=== PATIENT | male | born 1955 | race Caucasian/White ===

== ENCOUNTER 2017-08-25 16:16 | Inpatient (IN) | payer SELFPAY ==
[2017-08-25] VITALS (8 sets, daily range): BP systolic 106–135; BP diastolic 68–92; PULSE 98–110; RESP 16–18; TEMP 98.1–98.7; O2SAT 92–98
[~2017-08-25] VITALS: Ht 177.8 cm; Wt 77.0 kg
[~2017-08-25 16:16] MED LIST: IOHEXOL 350 MG/ML 100 ML BTL (for Cath Lab) OTHER ONE
[2017-08-25] MEDS ORDERED: LISI-515 PO (16:37)
[2017-08-25] MEDS ORDERED: NITROGLYCERIN 0.4 MG SL 25 TABS/BTL SL STA (16:40)
[2017-08-25] MEDS ORDERED: HEPARIN SODIUM - IV 10,000 UNITS/10 ML VIAL IV PUSH STA (16:40)
[2017-08-25] MEDS ORDERED: SODIUM CHLOR 0.9% 1000 ML INJ 1,000 ML IV ONE (16:40)
[2017-08-25] MEDS ORDERED: ASPIRIN 81 MG CHEW TAB PO STA (16:40)
[2017-08-25] MEDS ORDERED: HEPARIN SODIUM - IV 10,000 UNITS/10 ML VIAL ONE (16:43)
[2017-08-25] MEDS ORDERED: HEPARIN-NS/PF FLUSH BAG 2,000 ML IV FLUSH ONE (16:43)
[2017-08-25] MEDS ORDERED: NITROGLYCERIN-D5W 50 MG/250 ML 250 ML IV PRN (16:45)
[2017-08-25] MEDS ORDERED: SODIUM CHLORIDE 0.9% FLUSH 10 ML FLUSH IVF PRN (16:45)
--- NOTE | 2017-08-25 16:47 | PD ---
HPI Chief Complaint: STEMI Alert Time Seen by Provider: 16:25 Travel History International Travel<30 days: No Contact w/Intl Traveler<30days: No Traveled to known affect area: No History of Present Illness HPI The patient is a 62-year-old male who presents to the emergency department abnormal EKG. Patient states she was in the city 1 week ago on Wednesday when he developed what he thought was indigestion. The patient took medications and the symptoms got better. He then returned home and this past Wednesday developed shortness of breath while at rest. Patient thought it was secondary to exposure from mold on a construction site. He has been asymptomatic over the last several days, however, when saw his physician earlier today, Dr. Burris, who performed an EKG and sent him immediately to the emergency department via EMS for possible OH. Upon arrival the patient has no chest pain, shortness breath, nausea, vomiting, abdominal pain. He does note a history of previous OH 2017 with cardiac catheterization by Dr. Slater, however, no longer follows with Dr. Slater. The patient has not seen Dr. Burris in the last 9 years until earlier today. The patient does have a history of hypertension for which he takes lisinopril. He also has a history of hyperlipidemia takes no current medications. He does have a history of tobacco use, denies any history of diabetes. He does have a family history of heart disease on his mother's side. PFSH Past Medical History Cardiac Catheterization: Yes (STENT 2006) Diminished Hearing: No Hypertension: Yes Myocardial Infarction: Yes ("I GUESS I HAD A OH IN 2006") Triglycerides - High: Yes ?: Not Social History Alcohol Use: No Tobacco Use: No Substance Use: No Allergies-Medications (Allergen,Severity, Reaction): Coded Allergies: No Known Allergies (Unverified , 08/25/17) Reported Meds & Prescriptions Reported Meds & Active Scripts Active Reported Lisinopril 20 Mg Tab 20 Mg PO DAILY Review of Systems Except as stated in HPI: all other systems reviewed are Neg General / Constitutional: No: Fever Cardiovascular: Positive: Chest Pain or Discomfort (A week ago Wednesday which has resolved) Respiratory: Positive: Shortness of Breath (Last Wednesday which has been) Gastrointestinal: No: Nausea, Vomiting, Abdominal Pain Neurologic: No: Weakness, Dizziness Physical Exam Narrative GENERAL: Awake, alert, pleasant 62-year-old male who appears his stated age and is in no acute respiratory distress. SKIN: Focused skin assessment warm/dry. HEAD: Atraumatic. Normocephalic. EYES: Pupils equal and round. No injection or drainage. ENT: No nasal bleeding or discharge. Mucous membranes pink and moist. NECK: Trachea midline. No JVD. CARDIOVASCULAR: Regular rate and rhythm. No murmur appreciated. RESPIRATORY: No accessory muscle use. Clear to auscultation. Breath sounds equal bilaterally. GASTROINTESTINAL: Abdomen soft, non-tender, nondistended. No rebound tenderness. MUSCULOSKELETAL: No obvious deformities. No clubbing. No cyanosis. No edema. NEUROLOGICAL: Awake and alert. No obvious cranial nerve deficits. Motor grossly within normal limits. Normal speech. Nonfocal. PSYCHIATRIC: Appropriate mood and affect; insight and judgment normal. Data Data Last Documented VS Vital Signs Date Time Temp Pulse Resp B/P (MAP) Pulse Ox O2 Delivery O2 Flow Rate FiO2 08/25/17 19:00 109 08/25/17 18:43 98.1 18 134/85 (101) 92 08/25/17 16:48 Nasal Cannula 2.00 Orders Orders Electrocardiogram (08/25/17 ) Troponin I (08/25/17 16:40) Ckmb (Isoenzyme) Profile (08/25/17 16:40) Complete Blood Count With Diff (08/25/17 16:40) I-Stat Profile (08/25/17 16:40) I-Stat Creatinine (08/25/17 16:40) Calcium (08/25/17 16:40) Magnesium (Mg) (08/25/17 16:40) Prothrombin Time / Inr (Pt) (08/25/17 16:40) Act Partial Throm Time (Ptt) (08/25/17 16:40) B-Type Natriuretic Peptide (08/25/17 16:40) Chest, Single Ap (08/25/17 16:40) Oxygen Administration (08/25/17 16:40) Iv Access Insert/Monitor (08/25/17 16:40) Oximetry (08/25/17 16:40) Sodium Chlor 0.9% 1000 Ml Inj (Ns 1000 M (08/25/17 16:40) Sodium Chloride 0.9% Flush (Ns Flush) (08/25/17 16:45) Aspirin Chew (Aspirin Chew) (08/25/17 16:40) Nitroglycerin Sl (Nitrostat Sl) (08/25/17 16:40) Nitroglycerin-D5w 50 Mg/250 Ml (Nitrogly (08/25/17 16:45) Heparin Inj (Heparin Inj) (08/25/17 16:40) Heparin-Ns/Pf Flush Bag (Heparin-Ns/Pf F (08/25/17 16:43) Heparin Inj (Heparin Inj) (08/25/17 16:43) Admit Order (Ed Use Only) (08/25/17 16:47) Cardiac Catheterization (08/25/17 ) CKMB (08/25/17 16:40) CKMB% (08/25/17 16:40) Fentanyl Inj (Fentanyl Inj) (08/25/17 17:47) Clopidogrel (Plavix) (08/25/17 18:02) Furosemide Inj (Lasix Inj) (08/25/17 18:03) Tirofiban Infusion Inj (Aggrastat Infusi (08/25/17 18:03) Labs Laboratory Tests Test 08/25/17 16:40 White Blood Count 9.7 TH/MM3 Red Blood Count 4.59 MIL/MM3 Hemoglobin 14.3 GM/DL Bedside Hemoglobin 14.3 G/DL Hematocrit 42.1 % Bedside Hematocrit 42.0 % Mean Corpuscular Volume 91.5 FL Mean Corpuscular Hemoglobin 31.2 PG Mean Corpuscular Hemoglobin Concent 34.1 % Red Cell Distribution Width 12.8 % Platelet Count 211 TH/MM3 Mean Platelet Volume 11.3 FL Neutrophils (%) (Auto) 63.9 % Lymphocytes (%) (Auto) 25.0 % Monocytes (%) (Auto) 8.6 % Eosinophils (%) (Auto) 1.8 % Basophils (%) (Auto) 0.7 % Neutrophils # (Auto) 6.2 TH/MM3 Lymphocytes # (Auto) 2.4 TH/MM3 Monocytes # (Auto) 0.8 TH/MM3 Eosinophils # (Auto) 0.2 TH/MM3 Basophils # (Auto) 0.1 TH/MM3 CBC Comment AUTO DIFF Differential Comment AUTO DIFF CONFIRMED Platelet Estimate NORMAL Platelet Morphology Comment CLUMPED Prothrombin Time 10.6 SEC Prothromb Time International Ratio 1.0 RATIO Activated Partial Thromboplast Time 22.7 SEC Bedside Sodium 137 MMOL/L Bedside Potassium 6.0 MMOL/L Bedside Chloride 105 MMOL/L Bedside Blood Urea Nitrogen 19 MG/DL Bedside Creatinine 1.2 MG/DL Bedside Glucose 82 MG/DL Calcium Level 8.7 MG/DL Magnesium Level 2.4 MG/DL Total Creatine Kinase 275 U/L Creatine Kinase MB 2.0 NG/ML Troponin I 1.05 NG/ML B-Type Natriuretic Peptide 325 PG/ML MDM Medical Decision Making Medical Screen Exam Complete: Yes Emergency Medical Condition: Yes Medical Record Reviewed: Yes Interpretation(s) EKG reveals normal sinus rhythm with a rate of 95. ST elevation noted in V2, V3 , V4, and V5. Q waves noted in lead V2, V3, V4, and V5. Inverted T waves noted in lead I and aVL. Last Impressions Chest X-Ray 08/25/17 1640 Signed Impressions: Service Date/Time: Friday, August 25, 2017 16:42 - CONCLUSION: No acute disease. Jose Enrique Curry MD Laboratory Tests Test 08/25/17 16:40 White Blood Count 9.7 TH/MM3 Red Blood Count 4.59 MIL/MM3 Hemoglobin 14.3 GM/DL Bedside Hemoglobin 14.3 G/DL Hematocrit 42.1 % Bedside Hematocrit 42.0 % Mean Corpuscular Volume 91.5 FL Mean Corpuscular Hemoglobin 31.2 PG Mean Corpuscular Hemoglobin Concent 34.1 % Red Cell Distribution Width 12.8 % Platelet Count 211 TH/MM3 Mean Platelet Volume 11.3 FL Neutrophils (%) (Auto) 63.9 % Lymphocytes (%) (Auto) 25.0 % Monocytes (%) (Auto) 8.6 % Eosinophils (%) (Auto) 1.8 % Basophils (%) (Auto) 0.7 % Neutrophils # (Auto) 6.2 TH/MM3 Lymphocytes # (Auto) 2.4 TH/MM3 Monocytes # (Auto) 0.8 TH/MM3 Eosinophils # (Auto) 0.2 TH/MM3 Basophils # (Auto) 0.1 TH/MM3 CBC Comment AUTO DIFF Differential Comment AUTO DIFF CONFIRMED Platelet Estimate NORMAL Platelet Morphology Comment CLUMPED Prothrombin Time 10.6 SEC Prothromb Time International Ratio 1.0 RATIO Activated Partial Thromboplast Time 22.7 SEC Bedside Sodium 137 MMOL/L Bedside Potassium 6.0 MMOL/L Bedside Chloride 105 MMOL/L Bedside Blood Urea Nitrogen 19 MG/DL Bedside Creatinine 1.2 MG/DL Bedside Glucose 82 MG/DL Calcium Level 8.7 MG/DL Magnesium Level 2.4 MG/DL Total Creatine Kinase 275 U/L Creatine Kinase MB 2.0 NG/ML Troponin I 1.05 NG/ML B-Type Natriuretic Peptide 325 PG/ML Differential Diagnosis Differential diagnosis includes acute STEMI, subacute STEMI, ACS, pericarditis, Dudley syndrome, ventricular aneurysm, pulmonary embolism, GERD, esophageal spasm. Narrative Course IV was established, labs are drawn and sent, and the patient was placed on cardiac telemetry monitoring and continuous pulse oximetry monitoring. EKG was ordered and interpreted. I called the on-call public health microbiologist, Dr. Cornell, immediately regarding the EKG. After discussion was agreed a STEMI alert would be called. Patient was administered aspirin and placed on nitroglycerin drip. The patient was also administered a heparin bolus. The patient was immediately sent to the cardiac catheterization lab. Critical Care Narrative Aggregate critical care time was 35 minutes. Time to perform other separately billable procedures was not included in the critical care time. My time did not include minutes spent treating any other patients simultaneously or on activities that did not directly contribute to the patient's treatment. The services I provided to this patient were to treat and/or prevent clinically significant deterioration that could result in: Anoxia, hypoxia, cardiomyopathy , ventricular arrhythmia, sudden , . I provided critical care services requiring my management, as noted below: Chart data review, documentation time, medication orders and management, vital sign assessments/reviewing monitor data, ordering and reviewing lab tests, ordering and interpreting/reviewing x-rays and diagnostic studies, care of the patient and discussion of the patient with the admitting physicians. Physician Communication Physician Communication I discussed the patient with the public health microbiologist, Dr. Cornell, who agrees with sending the patient to the catheterization lab. Diagnosis Primary Impression: STEMI (ST elevation myocardial infarction) Qualified Codes: I21.3 - ST elevation (STEMI) myocardial infarction of unspecified site Admitting Information Admitting Physician Requests: Admit Condition: Stable Tino Chavira MD Aug 25, 2017 16:47
--- NOTE | 2017-08-25 17:01 | RADRPT ---
EXAM DATE/TIME: 08/25/2017 16:42 [facility] COMPARISON: No previous studies available for comparison. INDICATIONS : Stemi alert. Chest pain. MEDICAL HISTORY : None. SURGICAL HISTORY : None. ENCOUNTER: Initial ACUITY: 1 day PAIN SCORE: 05/26 LOCATION: Bilateral chest FINDINGS: A single view of the chest demonstrates the lungs to be symmetrically aerated without evidence of mas s, infiltrate or effusion. The cardiomediastinal contours are unremarkable. Osseous structures are intact. CONCLUSION: No acute disease. Jose Enrique Curry MD on August 25, 2017 at 16:58 Board Certified Radiologist. This report was verified electronically.
[2017-08-25 17:21] LABS: PROTHROMBIN TIME - PATIENT 10.6 SEC (9.8-11.6)
[2017-08-25 17:24] LABS: AUTOMATED NEUTROPHIL # 6.2 TH/MM3 (1.8-7.7); BASOPHIL # 0.1 TH/MM3 (0-0.2); BASOPHIL % 0.7 % (0.0-2.0); EOSINOPHIL # 0.2 TH/MM3 (0-0.4); EOSINOPHIL % 1.8 % (0.0-4.0); HEMATOCRIT 42.1 % (39.0-51.0); HEMOGLOBIN 14.3 GM/DL (13.0-17.0); LYMPHOCYTE # 2.4 TH/MM3 (1.0-4.8); MEAN CELL VOLUME 91.5 FL (80.0-100.0); MEAN CORPUSCULAR HEMOGLOBIN 31.2 PG (27.0-34.0); MEAN CORPUSCULAR HGB CONC 34.1 % (32.0-36.0); MEAN PLATELET VOLUME 11.3 FL (7.0-11.0); MONO % 8.6 % (0.0-8.0); MONOCYTE # 0.8 TH/MM3 (0-0.9); NEUT % 63.9 % (16.0-70.0); PLATELET COUNT 211 TH/MM3 (150-450); RED BLOOD COUNT 4.59 MIL/MM3 (4.50-5.90); RED CELL DISTRIBUTION WIDTH 12.8 % (11.6-17.2); WHITE BLOOD COUNT 9.7 TH/MM3 (4.0-11.0)
[2017-08-25 17:27] LABS: CALCIUM 8.7 MG/DL (8.5-10.1); MAGNESIUM 2.4 MG/DL (1.5-2.5)
[2017-08-25 17:38] LABS: TROPONIN I 1.05 NG/ML (0.02-0.05)
[2017-08-25] MEDS ORDERED: CLOPIDOGREL 300 MG TAB ONE (18:02)
[2017-08-25] MEDS ORDERED: FUROSEMIDE 40 MG/4 ML VIAL ONE (18:03)
[2017-08-25] MEDS ORDERED: TIROFIBAN INFUSION INJ 250 ML IV ONE (18:03)
--- NOTE | 2017-08-25 19:06 | MA ---
cc: Gilberto Cornell MD DATE: 08/25/2017 PROCEDURE PERFORMED: Left heart catheterization, left ventriculography, coronary angiography, direct PCI with bare-metal stent of the proximal mid LAD. INDICATION: Subacute myocardial infarction, congestive heart failure, [place] Heart Association class IV congestive heart failure, cardiomyopathy, anginal equivalent, [place] Cardi[employer] Society class III-IV angina. The patient was brought to the cardiac catheterization laboratory, prepped and draped in the usual sterile fashion and 10 mL of 1% lidocaine was used to locally anesthetize the right common femoral. A 4-[place] sheath placed in the right common femoral artery. A 4-[place] JL4 and JR4 catheter was used to performed right and left coronary angiography and left ventriculography. FINDINGS: LV pressure is 139/19-36. Ejection fraction is 30-35%. The anterior apical wall is severely hypokinetic. The right coronary is nondominant. It appears to be ectatic proximally. The reference vessel diameter in the proximal segment is 3.5. After the RV branch, the vessel abruptly tapers to a 0.5 mm vessel with no significant focal stenosis. The left main essentially is not present. There is separate ostia of the LAD and left circumflex vessel. The left circumflex vessel is a dominant vessel. It is a large vessel slightly ectatic in the proximal segment. Reference vessel diameter probably 5 mm in diameter. First obtuse marginal vessel is a small vessel, probably 1 mm in diameter. The second obtuse marginal vessel is a large vessel. Reference vessel diameter of 4 mm. The ostial segment has a 90% stenosis. The obtuse marginal vessel has a 90 degree angulation off the AV groove left circumflex; however, within about 5 mm, it takes a second 90 degree bend inferiorly. Beyond this vessel, there is a long 50-60% stenosis in the mid to distal AV groove left circumflex. There appears to be a stent in the obtuse marginal vessel as well in the proximal mid segment. The distal AV groove left circumflex has an 80% stenosis and then supplies a medium size left posterior descending coronary artery. There is also a distal posterolateral artery, which has an ostial bifurcation. Reference vessel diameter of probably 2.75 mm. No significant obstructive disease. The LAD has a 95% proximal mid stenosis. It is after the first diagonal artery, but it does appear anatomically to be in the more proximal segment of the LAD, although technically, it is mid due to the fact that the lesion exists beyond the first diagonal artery. The LAD is transapical. First diagonal artery is a medium size vessel, reference vessel diameter of at least 2.5 mm in diameter with a long ostial proximal 75% stenosis. Second diagonal artery is a small to medium size vessel, reference vessel diameter to 2.25-2.5 mm in diameter with a long 60-70% ostial proximal stenosis. Patient's 4-[place] sheath was exchanged for the 6-[place] sheath. Initial ACT 202. An additional 2500 units of heparin was given. Final ACT was 280. A 6-[place] XB 3.5 guide and 0.014 guidewire were used to cross the proximal mid LAD lesion. Lesion was stented directly with a 4.0, 12 Integrity stent inflated with 1 inflation of 10 atmospheres for 10 seconds. Stenosis went from 95% to 0% with INGRID 3 flow. CONCLUSION: 1. Subacute myocardial infarction with anterior septal Q-waves and residual ST elevation with reperfusion in the left anterior descending distribution, INGRID 3 flow. The patient having a [place] Heart Association class III-IV congestive heart failure symptoms, anginal equivalent, [place] Cardiovascular Society class III- angina; therefore, I did think it is medically necessary to perform percutaneous coronary intervention of the proximal mid LAD, particularly as the left ventricular end-diastolic pressure was 36 and in some beats, approaching 40 mmHg. 2. Cardiomyopathy, ejection fraction estimated at 30%. There does appear to be wall motion of the anterior apical wall suggesting viability. Otherwise, severe diagonal vessel, obtuse marginal vessel and left circumflex vessel as detailed above and a dominant left circumflex vessel anatomy. 3. Separate ostia of the LAD and left circumflex vessel. 4. Successful direct PCI with bare-metal stent in the proximal mid LAD from 95% to 0% with INGRID 3 flow. RECOMMENDATIONS: Plavix 600 mg p.o. load and then 75 mg a day for 12-15 months, aspirin 162 mg daily. Will initiate a beta kalpesh and RBINA inhibitor as hemodynamically and clinically tolerated. I will check fasting lipids, ALT, CK and treat lipids to NCEP guidelines. I have strongly recommended that the patient to stop smoking. Currently, his condition is guarded mostly due to his markedly elevated LVEDP. He was given 40 of IV Lasix in the asphalt plant laborer. I instructed the staff to avoid using Redman catheter at all possible costs due to him being fully anticoagulated and risk of urethral and prostate injury. MD PAM Cash/CHINO , 06:15 PM , 07:05 PM
[2017-08-25] MEDS ORDERED: TIROFIBAN INFUSION INJ 250 ML IV SCH (20:09)
[2017-08-25] MEDS ORDERED: SODIUM CHLORIDE 0.9% FLUSH 10 ML FLUSH IV FLUSH PRN (20:15)
[2017-08-25] MEDS ORDERED: MISC INFORMATION XX ONE (20:15)
[2017-08-25] MEDS ORDERED: CLOPIDOGREL 300 MG TAB PO ONE (20:15)
--- NOTE | 2017-08-25 20:53 | MB ---
cc: Gilberto Cornell MD DATE: 08/25/2017 HISTORY OF PRESENT ILLNESS: Levy is a very pleasant 62-year-old gentleman who experienced a 3-hour episode of chest discomfort described as indigestion that woke him up from sleep that lasted for about 3 hours, approximately 10 days prior to admission. He was seen by Dr. Apolinar Burris today, who did an EKG on him and found him to have a deep anteroseptal Q-waves with ST elevation in the anterior leads. He was sent to the emergency room. I discussed the case with Dr. Gottlieb. The patient also complains of severe dyspnea at rest. Based on the presence of persistent symptoms, we discussed the patient going urgently to the garage laborer, which a STEMI alert was called. The patient otherwise denies any fever, chills, cough, ____ PND, orthopnea, syncope or dizziness. PAST MEDICAL HISTORY: As per history of present illness. He has a history of a myocardial infarction 2016, was cathed by Dr. Slater. He has a history of PCI as well. He also has a history of hypertension. SOCIAL HISTORY: He does smoke. Denies alcohol use. ALLERGIES: NONE. MEDICATIONS PRIOR TO ADMISSION: Lisinopril 20 mg daily. MEDICATIONS PRIOR TO ARRIVAL TO THE CATHETERIZATION LABORATORY: The patient was given heparin bolus and drip. He also received aspirin chewable 324 mg. PHYSICAL EXAMINATION: GENERAL: He is alert and oriented x 3, in no acute distress. NECK: Supple. No JVD. No bruit. CARDIOVASCULAR: S1, S2. No murmurs, rubs or gallops. LUNGS: Clear to auscultation bilaterally. ABDOMEN: Soft, nontender, nondistended with positive bowel sounds. EXTREMITIES: No lower extremity edema. EKG is not available in the computer, but however, I did repeat see it in the garage laborer and he indeed had normal sinus rhythm with deep anteroseptal Q-waves and probably 3-[address] segment elevation in lead V1, V2, V3 suggestive of a subacute CT, possible LV aneurysm formation. LABORATORY DATA: Sodium 137, potassium 6.0, chloride 105, bicarbonate 19, creatinine 1.2, magnesium 2.4, total CK 275. Troponin is 1.05. INR is 1.0. White count 9.7, hemoglobin 14.3, hematocrit 42.1, platelet count 211. FINAL DIAGNOSES: 1. Subacute myocardial infarction. 2. [place] Heart Association class III-IV congestive heart failure. 3. History of coronary artery disease. 4. Hypertension. 5. Tobacco use. DISCUSSION: I agree with Dr. Gottlieb to do an urgent left heart catheterization based on the persistence of symptoms. The patient had a duration of 3 hours of chest pain, suggesting there may be some viable myocardium remaining. However, there are deep anteroseptal Q-waves on the EKG suggestive of a transmural anterior myocardial infarction. I strongly recommend smoking cessation. Will need to hold his BRINA inhibitor due to the hyperkalemia. The patient will most likely receive Lasix due to his congestive heart failure symptoms and this should help lower his potassium level, certainly need to follow the potassium level. Gilberto Cornell MD AWC/rt , 08:18 PM , 08:53 PM
[2017-08-25] MEDS ORDERED: ATORVASTATIN 10 MG TAB PO SCH (21:00)
[2017-08-26] VITALS (16 sets, daily range): BP systolic 110–121; BP diastolic 65–76; PULSE 88–112; RESP 16–20; TEMP 98.4–99; O2SAT 96–100
[2017-08-26] MEDS: SODIUM CHLORIDE 0.9% FLUSH 10 ML FLUSH IV FLUSH SCH ×3 (01:13→20:32)
--- NOTE | 2017-08-26 07:59 | PD.CONS ---
HPI Service [facility] Consult Requested By Dr. Cornell - cardiology service Reason for Consult Medical management Primary Care Physician Dr. Apolinar Burris Diagnoses: History of Present Illness Patient is a 62-year-old male with known history of CAD status post stent in 2006 about 10 days prior to admission complained of "indigestion, reflux sensation" to the epigastric area This lasted for about 3 hours. Denies any nausea vomiting. When questioned about chest pain he now states that in retrospect he probably have some chest discomfort. About 4 days prior to admission patient started complaining of shortness of breath. He took his ' s inhalers which he states did help. The next day he called his primary care physician and was seen in the office where an EKG done shows QS waves in anterior wall and patient was sent straight to the emergency room back via [facility]. Patient was promptly seen by [facility] operator and had a left heart catheterization was done. And underwent direct PCI with bare-metal stent of the proximal mid LAD. Ejection fraction was noted to be 30-35%. Patient was started on Plavix aspirin and Lasix. Patient now currently seen appears comfortable. Patient denies any fever cough denies any paroxysmal nocturnal dyspnea or orthopnea prior to this recent episode. Denies any leg swelling. Patient operates a company, active at work, plays golf every weekend. Patient admitted.for further evaluation and management Review of Systems Constitutional: DENIES: Diaphoretic episodes, Fatigue, Fever, Weight gain, Weight loss, Chills, Dizziness, Change in appetite, Night Sweats Endocrine: DENIES: Heat/cold intolerance, Polydipsia, Polyuria, Polyphagia Eyes: DENIES: Blurred vision, Diplopia, Eye inflammation, Eye pain, Vision loss , Photosensitivity, Double Vision Respiratory: DENIES: Apneas, Cough, Snoring, Wheezing, Hemoptysis, Sputum production, Shortness of breath Cardiovascular: DENIES: Chest pain, Palpitations, Syncope, Dyspnea on Exertion , PND, Lower Extremity Edema, Orthopnea, Claudication Gastrointestinal: DENIES: Abdominal pain, Black stools, Bloody stools, Constipation, Diarrhea, Nausea, Vomiting, Difficulty Swallowing, Anorexia Genitourinary: DENIES: Sexual dysfunction, Urinary frequency, Urinary incontinence, Urgency, Hematuria, Dysuria, Nocturia, Penile Discharge, Testicular Pain, Testicular Swelling Musculoskeletal: DENIES: Joint pain, Muscle aches, Stiffness, Joint Swelling, Back pain, Neck pain Integumentary: DENIES: Abnormal pigmentation, Nail changes, Pruritus, Rash Hematologic/lymphatic: DENIES: Bruising, Lymphadenopathy Immunologic/allergic: DENIES: Eczema, Urticaria Neurologic: DENIES: Abnormal gait, Headache, Localized weakness, Paresthesias, Seizures, Speech Problems, Tremor, Poor Balance Psychiatric: DENIES: Anxiety, Confusion, Mood changes, Depression, Hallucinations, Agitation, Suicidal Ideation, Homicidal Ideation, Delusions Past Family Social History Allergies: Coded Allergies: No Known Allergies (Unverified , 08/25/17) Past Medical History History of CAD status post stent [facility]. [facility] Past Surgical History No major surgeries Reported Medications Aspirin 81 mg daily Lisinopril 20 mg daily Family History Mom with history of hypertension- Dad- does not know much about his history but per patient of bacterial meningitis Social History Smoker one pack per day for about 40 years D the Lipitor/occasional alcohol use Occasionally smokes marijuana Physical Exam Vital Signs Vital Signs Date Time Temp Pulse Resp B/P (MAP) Pulse Ox O2 Delivery O2 Flow Rate FiO2 08/26/17 06:00 100 08/26/17 05:00 92 08/26/17 04:00 92 08/26/17 03:00 94 08/26/17 03:00 98.6 92 16 121/73 (89) 97 08/26/17 02:00 92 08/26/17 01:00 98 08/26/17 00:00 96 08/25/17 23:00 110 08/25/17 23:00 98.7 100 16 106/68 (81) 97 08/25/17 22:00 98 08/25/17 21:00 104 08/25/17 20:00 104 08/25/17 20:00 98.7 103 16 135/86 (102) 97 08/25/17 19:00 109 08/25/17 18:43 98.1 109 18 134/85 (101) 92 08/25/17 16:48 112 18 132/92 (105) 100 Nasal Cannula 2.00 08/25/17 16:22 101 17 132/83 (99) 98 Physical Exam GENERAL: This is a well-nourished, well-developed patient, in no apparent distress. SKIN: No rashes, ecchymoses or lesions. Cool and dry. HEAD: Atraumatic. Normocephalic. No temporal or scalp tenderness. EYES: Pupils equal round and reactive. Extraocular motions intact. No scleral icterus. ENT: Nose without bleeding, purulent drainage or septal hematoma. Throat without erythema,. Airway patent. NECK: Trachea midline. No JVD or lymphadenopathy. Supple, nontender, no meningeal signs. No bruit CARDIOVASCULAR: Regular rate and rhythm without murmurs, gallops, or rubs. RESPIRATORY: Clear to auscultation. Breath sounds equal bilaterally. No wheezes , rales, or rhonchi. GASTROINTESTINAL: Abdomen soft, non-tender, nondistended. No guarding. MUSCULOSKELETAL: Extremities without clubbing, cyanosis, or edema. No joint tenderness, effusion, or edema noted. No calf tenderness. Negative Homans sign bilaterally. Right groin no hematoma. Good peripheral pulses +2 both upper and lower extremity NEUROLOGICAL: Awake and alert. Cranial nerves II through XII intact. Motor and sensory grossly within normal limits. Five out of 5 muscle strength in all muscle groups. Normal speech. Laboratory Laboratory Tests Test 08/25/17 16:40 White Blood Count 9.7 Red Blood Count 4.59 Hemoglobin 14.3 Bedside Hemoglobin 14.3 Hematocrit 42.1 Bedside Hematocrit 42.0 Mean Corpuscular Volume 91.5 Mean Corpuscular Hemoglobin 31.2 Mean Corpuscular Hemoglobin Concent 34.1 Red Cell Distribution Width 12.8 Platelet Count 211 Mean Platelet Volume 11.3 Neutrophils (%) (Auto) 63.9 Lymphocytes (%) (Auto) 25.0 Monocytes (%) (Auto) 8.6 Eosinophils (%) (Auto) 1.8 Basophils (%) (Auto) 0.7 Neutrophils # (Auto) 6.2 Lymphocytes # (Auto) 2.4 Monocytes # (Auto) 0.8 Eosinophils # (Auto) 0.2 Basophils # (Auto) 0.1 CBC Comment AUTO DIFF Differential Comment AUTO DIFF CONFIRMED Platelet Estimate NORMAL Platelet Morphology Comment CLUMPED Prothrombin Time 10.6 Prothromb Time International Ratio 1.0 Activated Partial Thromboplast Time 22.7 Bedside Sodium 137 Bedside Potassium 6.0 Bedside Chloride 105 Bedside Blood Urea Nitrogen 19 Bedside Creatinine 1.2 Bedside Glucose 82 Calcium Level 8.7 Magnesium Level 2.4 Total Creatine Kinase 275 Creatine Kinase MB 2.0 Troponin I 1.05 B-Type Natriuretic Peptide 325 Result Diagram: 4/11/18 1640 Imaging Last Impressions Chest X-Ray 08/25/17 1640 Signed Impressions: Service Date/Time: Friday, August 25, 2017 16:42 - CONCLUSION: No acute disease. Jose Enrique Curry MD Assessment and Plan Assessment and Plan 62-year-old male with known history of CAD presenting with Acute coronary syndrome status post left heart catheterization with PCI with bare metal stent of proximal LAD 08/25 Ischemic Cardiomyopathy ejection fraction of 30-35% Plavix plus aspirin Lasix 40 mg IV every 12 statin. Cardiology following. BMP Liver function tests, lipid panel ordered for this am Will defer to cardiology regarding adding BRINA +/or BB (Coreg) to regimen Hyperkalemia- on initial labs. Repeat BMP now and in am- patient on IV Lasix Tobacco abuse. Patient counseled extensively. Increase activity Jey Fernandes MD Aug 26, 2017 07:59
[2017-08-26 08:53] LABS: ALBUMIN 3.8 GM/DL (3.4-5.0); BICARBONATE 20.5 MEQ/L (21.0-32.0); CALCIUM 8.7 MG/DL (8.5-10.1); CREATININE 1.19 MG/DL (0.60-1.30); MAGNESIUM 2.2 MG/DL (1.5-2.5)
[2017-08-26 08:57] LABS: CHOLESTEROL/ HDL RATIO 8.09 RATIO; DIRECT BILIRUBIN ADULT 0.3 MG/DL (0.0-0.2); HDL CHOLESTEROL 24.2 MG/DL (40.0-60.0); INDIRECT BILIRUBIN 0.5 MG/DL (0.0-0.8); TOTAL BILIRUBIN ADULT 0.8 MG/DL (0.2-1.0); TOTAL PROTEIN 7.6 GM/DL (6.4-8.2)
[2017-08-26] MEDS: FUROSEMIDE 40 MG/4 ML VIAL IV PUSH SCH ×2 (09:15→17:36)
[2017-08-26] MEDS: CLOPIDOGREL 75 MG TAB PO SCH (09:15)
[2017-08-26] MEDS: ASPIRIN 81 MG CHEW TAB PO SCH (09:15)
[2017-08-26 14:26] LABS: AUTOMATED NEUTROPHIL # 6.4 TH/MM3 (1.8-7.7); BASOPHIL # 0.1 TH/MM3 (0-0.2); BASOPHIL % 0.6 % (0.0-2.0); EOSINOPHIL # 0.1 TH/MM3 (0-0.4); HEMATOCRIT 41.1 % (39.0-51.0); HEMOGLOBIN 14.1 GM/DL (13.0-17.0); LYMPH % 21.1 % (9.0-44.0); MEAN CELL VOLUME 89.9 FL (80.0-100.0); MEAN CORPUSCULAR HEMOGLOBIN 30.9 PG (27.0-34.0); MEAN CORPUSCULAR HGB CONC 34.4 % (32.0-36.0); MEAN PLATELET VOLUME 10.6 FL (7.0-11.0); MONO % 9.7 % (0.0-8.0); MONOCYTE # 0.9 TH/MM3 (0-0.9); NEUT % 67.6 % (16.0-70.0); PLATELET COUNT 253 TH/MM3 (150-450); RED BLOOD COUNT 4.57 MIL/MM3 (4.50-5.90); RED CELL DISTRIBUTION WIDTH 12.7 % (11.6-17.2); WHITE BLOOD COUNT 9.5 TH/MM3 (4.0-11.0)
--- NOTE | 2017-08-26 17:16 | ECHRPT ---
Indication: Cardiomyopathy CONCLUSIONS The left ventricular systolic function is severely reduced with an estimated ejection fraction in th e range of 25-30%. There is diffuse global hypokinesis with distinct regional wall motion abnormalities Wall thickness is measured at the upper limits of normal. Mildly dilated left ventricle. Anterior, anterolateral, apical, and inferoapical hypokinesis. A possible atrial level shunt is demonstrated by color flow Doppler interrogation, clinical correlat ion recommended. Mitral annular calcification is present. Mild pulmonary valve regurgitation. BP: 140 / 76 HR: 72 Rhythm: Sinus MEASUREMENTS (Male / Female) Normal Values Technical Quality:Fair 2D ECHO LV Diastolic Diameter PLAX 4.5 cm 4.2 - 5.9 / 3.9 - 5.3 cm LV Systolic Diameter PLAX 3.9 cm IVS Diastolic Thickness 1.4 cm 0.6 - 1.0 / 0.6 - 0.9 cm LVPW Diastolic Thickness 1.1 cm 0.6 - 1.0 / 0.6 - 0.9 cm LV Relative Wall Thickness 0.6 RV Internal Dim ED PLAX 2.7 cm LVOT Diameter 2.1 cm LA Systolic Diameter LX 3.4 cm 3.0 - 4.0 / 2.7 - 3.8 cm M-MODE Aortic Root Diameter MM 2.9 cm LA Systolic Diameter MM 3.6 cm LA Ao Ratio MM 1.2 MV E Point Septal Separation 2.0 cm AV Cusp Separation MM 1.7 cm DOPPLER AV Peak Velocity 95.6 cm/s AV Peak Gradient 3.7 mmHg LVOT Peak Velocity 64.4 cm/s LVOT Peak Gradient 1.7 mmHg AV Area Cont Eq pk 2.3 cm MV Area PHT 3.8 cm Mitral E Point Velocity 38.1 cm/s Mitral A Point Velocity 80.6 cm/s Mitral E to A Ratio 0.5 LV E' Lateral Velocity 10.6 cm/s Mitral E to LV E' Lateral Ratio 3.6 LV E' Septal Velocity 4.9 cm/s Mitral E to LV E' Septal Ratio 7.8 FINDINGS LEFT VENTRICLE The left ventricular systolic function is severely reduced with an estimated ejection fraction in th e range of 25-30%. There is diffuse global hypokinesis with distinct regional wall motion abnormalities Wall thickness is measured at the upper limits of normal. Mildly dilated left ventricle. Anterior, anterolateral, apical, and inferoapical hypokinesis. RIGHT VENTRICLE Normal right ventricular size and systolic function. LEFT ATRIUM The left atrial size is normal. RIGHT ATRIUM The right atrial size is normal. ATRIAL SEPTUM A possible atrial level shunt is demonstrated by color flow Doppler interrogation, clinical correlat ion recommended. AORTA The aortic root and proximal ascending aorta are normal in size on limited imaging. MITRAL VALVE Mitral annular calcification is present. AORTIC VALVE Trileaflet aortic valve. No aortic valve stenosis or regurgitation. TRICUSPID VALVE Structurally normal tricuspid valve. No tricuspid valve stenosis or regurgitation. PULMONARY VALVE Mild pulmonary valve regurgitation. VESSELS The inferior vena cava is normal in size. PERICARDIUM No pericardial effusion. Jose Steve MD, FACC (Electronically Signed) Final Date:26 August 2017 17:15
--- NOTE | 2017-08-26 18:35 | PD.CARD.PN ---
Subjective Subjective Remarks alert in nad, denies chest pain or dyspnea, c/o mild left shoulder pain Objective Medications Current Medications Medications (Trade) Dose Ordered Sig/Rubens Route Start Time Stop Time Status Last Admin (NS Flush) 2 ml UNSCH PRN IVF 08/25/17 16:45 Nitroglycerin/ Dextrose 250 ml @ 3 mls/hr TITRATE PRN IV 08/25/17 16:45 (NS Flush) 2 ml UNSCH PRN IV FLUSH 08/25/17 20:15 (NS Flush) 2 ml BID IV FLUSH 08/25/17 21:00 08/26/17 01:13 (Aspirin Chew) 162 mg DAILY PO 08/26/17 09:00 08/26/17 09:15 (Plavix) 75 mg DAILY PO 08/26/17 09:00 08/26/17 09:15 (Lipitor) 10 mg HS PO 08/25/17 21:00 08/26/17 01:13 (Lasix Inj) 40 mg BID@18 IV PUSH 08/26/17 09:00 08/26/17 17:36 (KCl) 30 meq ONCE ONCE PO 08/26/17 18:30 08/26/17 18:31 UNV Vital Signs / I&O Vital Signs Date Time Temp Pulse Resp B/P (MAP) Pulse Ox O2 Delivery O2 Flow Rate FiO2 08/26/17 18:00 98.7 88 16 112/65 (81) 96 08/26/17 17:06 104 08/26/17 12:58 98.4 95 16 113/65 (81) 97 08/26/17 08:22 95 16 119/76 (90) 100 08/26/17 06:00 100 08/26/17 05:00 92 08/26/17 04:00 92 08/26/17 03:00 94 08/26/17 03:00 98.6 92 16 121/73 (89) 97 08/26/17 02:00 92 08/26/17 01:00 98 08/26/17 00:00 96 08/25/17 23:00 110 08/25/17 23:00 98.7 100 16 106/68 (81) 97 08/25/17 22:00 98 08/25/17 21:00 104 08/25/17 20:00 104 08/25/17 20:00 98.7 103 16 135/86 (102) 97 08/25/17 19:00 109 08/25/17 18:43 98.1 109 18 134/85 (101) 92 I/O 08/25/17 08/25/17 08/25/17 08/26/17 08/26/17 08/26/17 07:00 15:00 23:00 07:00 15:00 23:00 Intake Total 1000 ml 480 ml Output Total 1250 ml Balance 1000 ml -770 ml Intake Oral 480 ml IV Total 1000 ml Output Urine Total 1250 ml Stool Total 0 ml # Voids 6 Physical Exam GENERAL: SKIN: Warm and dry. HEAD: Normocephalic. EYES: No scleral icterus. No injection or drainage. NECK: Supple, trachea midline. No JVD or lymphadenopathy. CARDIOVASCULAR: Regular rate and rhythm without murmurs, gallops, or rubs. RESPIRATORY: Breath sounds equal bilaterally. No accessory muscle use. GASTROINTESTINAL: Abdomen soft, non-tender, nondistended. MUSCULOSKELETAL: No cyanosis, or edema. BACK: Nontender without obvious deformity. No CVA tenderness. Laboratory Laboratory Tests Test 08/26/17 07:20 08/26/17 14:02 Blood Urea Nitrogen 17 MG/DL Creatinine 1.19 MG/DL Random Glucose 90 MG/DL Total Protein 7.6 GM/DL Albumin 3.8 GM/DL Calcium Level 8.7 MG/DL Magnesium Level 2.2 MG/DL Alkaline Phosphatase 97 U/L Aspartate Amino Transf (AST/SGOT) 21 U/L Alanine Aminotransferase (ALT/SGPT) 22 U/L Total Bilirubin 0.8 MG/DL Direct Bilirubin 0.3 MG/DL Sodium Level 138 MEQ/L Potassium Level 3.6 MEQ/L Chloride Level 106 MEQ/L Carbon Dioxide Level 20.5 MEQ/L Anion Gap 12 MEQ/L Estimat Glomerular Filtration Rate 62 ML/MIN Indirect Bilirubin 0.5 MG/DL Total Creatine Kinase 152 U/L B-Type Natriuretic Peptide 348 PG/ML Triglycerides Level 136 MG/DL Cholesterol Level 196 MG/DL LDL Cholesterol 145 MG/DL HDL Cholesterol 24.2 MG/DL Cholesterol/HDL Ratio 8.09 RATIO White Blood Count 9.5 TH/MM3 Red Blood Count 4.57 MIL/MM3 Hemoglobin 14.1 GM/DL Hematocrit 41.1 % Mean Corpuscular Volume 89.9 FL Mean Corpuscular Hemoglobin 30.9 PG Mean Corpuscular Hemoglobin Concent 34.4 % Red Cell Distribution Width 12.7 % Platelet Count 253 TH/MM3 Mean Platelet Volume 10.6 FL Neutrophils (%) (Auto) 67.6 % Lymphocytes (%) (Auto) 21.1 % Monocytes (%) (Auto) 9.7 % Eosinophils (%) (Auto) 1.0 % Basophils (%) (Auto) 0.6 % Neutrophils # (Auto) 6.4 TH/MM3 Lymphocytes # (Auto) 2.0 TH/MM3 Monocytes # (Auto) 0.9 TH/MM3 Eosinophils # (Auto) 0.1 TH/MM3 Basophils # (Auto) 0.1 TH/MM3 CBC Comment DIFF FINAL Differential Comment Assessment and Plan Problem List: (1) NSTEMI (non-ST elevated myocardial infarction) ICD Codes: I21.4 - Non-ST elevation (NSTEMI) myocardial infarction (2) CAD (coronary artery disease) ICD Codes: I25.10 - Atherosclerotic heart disease of [place] coronary artery without angina pectoris (3) Cardiomyopathy ICD Codes: I42.9 - Cardiomyopathy, unspecified (4) Tobacco abuse ICD Codes: Z72.0 - Tobacco use Assessment and Plan 1.) CAD - pod# 1 bms prox lad, continue aspirin, plavix, increase lipitor 80 mg hs, start coreg 3.125 mg bid, lisinopril 2.5 mg qd, consider pci diag, om, lcx if left shoulder persists or worsens 2.) cardiomyopathy - continue diuresis, f/u bnp/bmp 3.) Patient strongly advised to stop Gilberto Escudero MD Aug 26, 2017 18:35
[2017-08-26] MEDS ORDERED: PILL SPLITTER OTHER PRN (19:00)
[2017-08-26] MEDS ORDERED: POTASSIUM CHLORIDE 10 MEQ CONTROLLED RELEASE TAB PO ONE (19:15)
[2017-08-26] MEDS ORDERED: LISINOPRIL 5 MG TAB PO ONE (19:30)
[2017-08-26] MEDS ORDERED: CARVEDILOL 3.125 MG TAB PO ONE (20:00)
--- NOTE | 2017-08-26 20:20 | EKG ---
Date Performed: 08/25/2017 Time Performed: 16:24:57 PTAGE: 62 years EKG: Sinus rhythm POSSIBLE LEFT ATRIAL ENLARGEMENT ANTEROSEPTAL MYOCARDIAL INFARCTION Clinical correlation is recommen ded ACUTE NV NO PREVIOUS TRACING DOCTOR: Sean Hoff Interpretating Date/Time 08/26/2017 20:18:58
--- NOTE | 2017-08-26 20:21 | EKG ---
Date Performed: 08/26/2017 Time Performed: 05:49:04 PTAGE: 62 years EKG: Sinus rhythm ANTEROSEPTAL INFARCT - POSSIBLY ACUTE Lateral T wave changes may be due to myocardial ischem ia Compared to previous tracing, EKG remains consistent with acute or very recent anterior VT Abnorma l ECG PREVIOUS TRACING : 08/25/2017 16.24 DOCTOR: Sean Hoff Interpretating Date/Time 08/26/2017 20:19:41
[2017-08-26] MEDS: ATORVASTATIN 80 MG TAB PO SCH (20:31)
[2017-08-27] VITALS (23 sets, daily range): BP systolic 92–114; BP diastolic 60–71; PULSE 81–114; RESP 16–20; TEMP 97.6–99; O2SAT 94–97
[2017-08-27 05:50] LABS: BICARBONATE 23.1 MEQ/L (21.0-32.0); CALCIUM 8.8 MG/DL (8.5-10.1); CREATININE 1.42 MG/DL (0.60-1.30); MAGNESIUM 2.2 MG/DL (1.5-2.5)
--- NOTE | 2017-08-27 07:52 | HHI.PR ---
Subjective Remarks last evening had some fleeting episodes of left shoulder discomfort- no assoicated chest pain or shortness of breath or diaphoresis no nausea or vomiting none since midnight had been up and ambulating-voiding well Objective Vitals Vital Signs Date Time Temp Pulse Resp B/P (MAP) Pulse Ox O2 Delivery O2 Flow Rate FiO2 08/27/17 06:00 86 08/27/17 05:00 114 08/27/17 04:00 90 08/27/17 03:00 92 08/27/17 03:00 99.0 95 20 106/66 (79) 94 08/27/17 02:00 90 08/27/17 01:00 96 08/27/17 00:00 95 08/27/17 00:00 98.8 97 20 92/60 (71) 95 08/26/17 23:00 112 08/26/17 22:00 96 08/26/17 21:00 94 08/26/17 20:00 110 08/26/17 19:00 99.0 99 20 110/69 (83) 96 08/26/17 19:00 106 08/26/17 18:00 98.7 101 16 112/65 (81) 96 08/26/17 17:06 104 08/26/17 12:58 98.4 95 16 113/65 (81) 97 08/26/17 08:22 95 16 119/76 (90) 100 I/O 08/26/17 08/26/17 08/26/17 08/27/17 08/27/17 08/27/17 07:00 15:00 23:00 07:00 15:00 23:00 Intake Total 480 ml 360 ml Output Total 1250 ml 0 ml Balance -770 ml 360 ml Intake Oral 480 ml 360 ml Output Urine Total 1250 ml Stool Total 0 ml Emesis 0 ml # Voids 6 2 # Bowel Movements 0 Result Diagram: 08/26/17 1402 08/27/17 0449 Imaging Last Impressions Chest X-Ray 08/25/17 1640 Signed Impressions: Service Date/Time: Friday, August 25, 2017 16:42 - CONCLUSION: No acute disease. Jose Enrique Curry MD Objective Remarks awake and alert, no acute distress anicteric no JVD, supple lungs- no rales no wheezes regular rhythm abdomen soft, nontender right groin- cath site- no hematoma good peripheral pulses Procedures 08/25- cardiac cath A/P Assessment and Plan 62-year-old male with known history of CAD presenting with Acute coronary syndrome status post left heart catheterization with PCI with bare metal stent of proximal LAD 08/25 Ischemic Cardiomyopathy ejection fraction of 30-35%- clinically not in failure Plavix plus aspirin change to po Lasix - decrease dose to 20 mg po bid Lisinopril + Coreg Cardiology ff Hyperlipidemia- LDL 145 continue on statins. LFTs good Hyperkalemia- resolved BREA- with IV diuretics decrease Lasix to 20 mg po bid - and change to po route -non oliguric -FF BMP Tobacco abuse. Patient counseled extensively. Increase activity OP ff up Jey Fernandes MD Aug 27, 2017 07:52
[2017-08-27] MEDS ORDERED: FUROSEMIDE 20 MG/2 ML VIAL IV PUSH SCH (09:00)
[2017-08-27] MEDS ORDERED: FUROSEMIDE 20 MG TAB PO SCH (09:00)
[2017-08-27] MEDS ORDERED: SPIRONOLACTONE 25 MG TAB PO ONE (10:30)
[2017-08-27] MEDS: LISINOPRIL 5 MG TAB PO SCH (10:43)
[2017-08-27] MEDS: ASPIRIN 81 MG CHEW TAB PO SCH (10:45)
[2017-08-27] MEDS: SODIUM CHLORIDE 0.9% FLUSH 10 ML FLUSH IV FLUSH SCH ×2 (10:46→21:54)
[2017-08-27] MEDS: CARVEDILOL 3.125 MG TAB PO SCH ×2 (10:49→21:53)
[2017-08-27] MEDS: CLOPIDOGREL 75 MG TAB PO SCH (11:00)
--- NOTE | 2017-08-27 15:06 | CATHPROC ---
[employer] HIS Report Study Information Study Number Admission Scheduled Start Study Start [id number] Aug 25 2017 4:16PM 08/25/2017 Aug 25 2017 4:52PM [place] Service Cardiac Catheterization Admit Source Facility Department Emergency department [facility] - Social Worker Psychiatric Physician and Clinical Staff Initial Gilberto Cruz Filler Sifter Machine Ramona Toledo,ELNA Recorder Charlie Juárez RCIS(BS) Recorder Calin Cantu,LENA Scrub Tabatha Almazan,BIOMETRICS INSTRUCTOR TECH2 Procedures Performed Procedure Location (Site) Vessel Name Coronary Angiograms LCA Left Coronary Coronary Angiograms RCA Right Coronary Stent LAD Prox Left Coronary Wire insertion Fem Art (right) Femoral Art Equipment Time Bowling Alley Mechanic Description Size Mfg Part Number Used/Scraped [id number] 17:52 GARCIA [employer] WIRE, ASAHI PROWATER 180CM 180CM Used *[id number] TRANSDUCER, TRUWAVE [id number] 16:54 Vdolg ROCHA * Used W/STOCKCOCK *[id number] [id number] *[id number] [id number] *[id number] *[id number] 16:54 MEDLINE INDUSTRIES PACK, CCL CUSTOM * Used *[id number] 16:54 Fed Playbook PACER PEN, SKIN DUAL W/ RULER * Used *[id number] 17:55 MEDTRONIC STENT, 4.0 12 INTEGRITY 4.0 12 Used *[id number] 18:01 Zenbox MEDICAL 30 CRISTIANE INDEFLATOR Used *[id number] 17:10 Zenbox MEDICAL SHEATH, FR6.5 PRELUDE 11CM FR 6.5 038ACT Used *[id number] 16:54 Zenbox MEDICAL WIRE, 3MMJ .035 180CM 180CM Used *[id number] 16:54 NAMIC MANIFOLD, 4 PORT * Used *[id number] 16:54 NYCOMED OMNIPAQUE, 350 MG, 150ML 150ML [id number] Used [id number] 16:54 SOTO MEDICAL BLANKET,WARM AIR CCL * Used *[id number] 16:54 TERUMO MEDICAL SHEATH, FR4 TERUMO (10CM) FR 4 Used *[id number] Equipment Model, Serial, Lot Number and Expiration Data Description Model Number Serial Number Lot Number Expiration Date STENT, 4.0 12 INTEGRITY [id number] 09-21-2018 History: Current Medications Medication Dosage/Unit Route Frequency Last Date/Time Taken LISINOPRIL History: Allergies Allergy Reaction No Known Allergies History: Risk Factors Family History of Hypertension Dyslipidemia Previous AR Previous Heart Failure Premature CAD Yes Yes Yes Yes No Prior Valve Prior PCI Prior PCIDate Prior CABG Surgery No Yes 05/17/2006 No Cerebrovascular Peripheral Artery Chronic Lung On Dialysis Diabetes Disease Disease Disease No No No No No History: Stress Tests Stress or Imaging Studies Performed No History: Other Disease Selection Items CAD HTN History: AR/CV Data Previous Cath Date 05/17/2016 History: Other Current Smoker No Labs Hgb (g/dl) Hct (%) 11.60-17.00 35.00-51.00 14.3 42 Glucose (mg/dl) BUN (mg/dl) Creatinine (mg/dl) BUN:Creatinine (1:x) 74.00-106.00 7.00-18.00 0.50-1.30 10.00-20.00 82 19 1.2 15.8 Na (meq/l) K (meq/l) Cl (meq/l) 136.00-145.00 3.50-5.10 98.00-107.00 6 6 105 CPK-MB (ng/ML) 0.50-3.60 Not Drawn Medication Medication Total Dose (Bolus/Oral) Medication Total Dosage/Unit 1% XYLOCAINE 20 mL AGGRASTAT BOLUS 40 mL FENTANYL 25 mcg HEPARIN 2500 units Medications (Bolus/Oral) Medication Time Given Dosage/Unit Administered By Reason 1% XYLOCAINE 08/25/2017 5:44:54 PM 20 mL Gilberto Cornell Patient arrived on 20 mL 1% XYLOCAINE given by Gilberto Cornell in Right Groin via Subcutaneous. FENTANYL 08/25/2017 5:47:58 PM 25 mcg Ramona Toledo Patient arrived on 25 mcg FENTANYL given by Ramona Toledo, LENA via Peripheral IV. HEPARIN 08/25/2017 5:54:44 PM 2500 units Ramona Toledo Patient arrived on 2500 units HEPARIN given by Ramona Toledo, LENA via Peripheral IV. AGGRASTAT BOLUS 08/25/2017 6:05:36 PM 40 mL Ramona Toledo Patient arrived on 40 mL AGGRASTAT BOLUS given by Ramona Toledo, LENA via Peripheral IV. Medication (Drip) Medication Time Given Dosage/Unit Concentration/Unit Diluent (ml) Soluti on IV Solutions 08/25/2017 4:55:21 PM 0 mL (IV) 1000 NaCl .9 Patient arrived on IV Solutions in Right Wrist via Peripheral IV. Pump/Drip Flow = 20 ml/hr using NaC l .9. IV Solutions 08/25/2017 4:59:41 PM 0 mL (IV) 500 NaCl .9 Patient arrived on IV Solutions in Left Wrist via Peripheral IV. Pump/Drip Flow = 20 ml/hr using NaCl .9. Initial Case Assessment Cardiovascular HR Chest Pain 112 0 Circulatory - Right Pulses Dorsalis Pedis Femoral 1 2 Scale (0,1,2,3,4,d) Circulatory - Left Pulses Dorsalis Pedis Femoral 1 2 Scale (0,1,2,3,4,d) Neurological State Oriented to time-place- Alert Moves all extremities person Respiration - General Respiration Rate (B/min) 10 Chronological Log Time Study Chronological Log 16:52:25 Patient arrived directly from ER. 16:52:30 Patient Name, D.O.B, / Armband Verified By R.N. 16:52:31 Consent signed by the physician and the patient and verified by the Social Worker Psychiatric staff. 16:52:32 Pre-op and post- op instructions given; patient acknowledges understanding of instructions. 16:52:33 Verbal Stimulation=2 Physical Stimulation=2 Airway=2 Respiration=2 TOTAL=8. (0=absent, 1=li mited, 2=present) 16:52:35 Presedation assessment performed by Social Worker Psychiatric RN. 16:52:37 Patient has been NPO for More than 6Hrs. 16:52:38 Skin Breakdown-none 16:52:39 Jared Prominences Protected 16:55:19 A # 20 IV was noted in the Hand (left). Grade = patent 16:55:20 A # 20 IV was noted in the Wrist (right). Grade = 0 16:55:21 Patient arrived on IV Solutions in Right Wrist via Peripheral IV. Pump/Drip Flow = 20 ml/hr using NaCl .9. 16:55:26 History and physical on the chart or being dictated. Vitals capture started with the following parameters, Patient=Adult, Interval=5 min, Initial Pr sagmdj=748 mmHg, 16:56:54 Deflation Rate=5 mmHg, Cuff placed on Left Arm 16:56:58 Bilateral groins prepped with 2% chlorhexidine, and draped after a 3 minute waiting time. Assessment: Initial Case, RC=765 BPM, Chest Pain=0 Right Pulses: Andrea Ped=1, Femoral=2 16:57:04 Left Pulses: Andrea Ped=1, Femoral=2 Neurological: State=Alert, Ox3, GARY Respiration: Resp=10 B/min 16:58:04 MD paged Vitals capture started with the following parameters, Patient=Adult, Interval=5 min, Initial Pr fperua=047 mmHg, 16:59:30 Deflation Rate=5 mmHg, Cuff placed on Left Arm 16:59:41 Patient arrived on IV Solutions in Left Wrist via Peripheral IV. Pump/Drip Flow = 20 ml/hr using NaCl .9. 17:00:11 UT=077 bpm, DPTB=506/88 mmhg, SpO2=98.0 %, Resp=8 B/min, Pain=0, Meaghan=10, Lentz=2 17:00:31 Pressure channel 1 zeroed. 17:00:49 Reference ECG taken 17:03:00 Dr. Cornell called and notified laboratory monitor that he is at [facility], but is on his way. 17:05:10 XU=602 bpm, JIWV=753/82 mmhg, SpO2=98.0 %, Resp=13 B/min, Pain=0, Meaghan=10, Lentz=2 17:10:11 HR=98 bpm, IIRT=340/82 mmhg, SpO2=96.0 %, Resp=13 B/min, Pain=0, Meaghan=10, Lentz=2 17:15:08 YF=965 bpm, MVRQ=268/92 mmhg, SpO2=98 %, Resp=14 B/min, Pain=0, Meaghan=10, Lentz=2 17:20:11 HR=96 bpm, HYZB=379/85 mmhg, SpO2=97.0 %, Resp=11 B/min, Pain=0, Meaghan=10, Lentz=2 17:25:10 SP=249 bpm, TOWI=787/88 mmhg, SpO2=98.0 %, Resp=17 B/min, Pain=0, Meaghan=10, Lentz=2 17:30:15 LK=856 bpm, FVBF=984/84 mmhg, SpO2=99.0 %, Resp=16 B/min, Pain=0, Meaghan=10, Lentz=2 17:35:12 HR=99 bpm, YICX=706/92 mmhg, SpO2=99 %, Resp=14 B/min, Pain=0, Meaghan=10, Lentz=2 17:40:13 MH=058 bpm, YEFB=730/87 mmhg, SpO2=98.0 %, Resp=18 B/min, Pain=0, Meaghan=10, Lentz=2 17:41:05 MD arrived. Time Out. Correct patient, correct procedure, correct physician, power injector loaded, or not loaded with contrast with 17:43:45 surgical team present. Time Out Concurred by MD and individual staff in procedure. 17:43:48 Case Start 17:44:54 Patient arrived on 20 mL 1% XYLOCAINE given by Gilberto Cornell in Right Groin via Subcutan eous. 17:45:12 JR=758 bpm, UESS=718/98 mmhg, Resp=17 B/min, Pain=0, Meaghan=10, Lentz=2 17:47:58 Patient arrived on 25 mcg FENTANYL given by Ramona Toledo, LENA via Peripheral IV. 17:48:08 A SHEATH, FR4 TERUMO (10CM) FR 4 was advanced into the Fem Art (right) using the Modified S eldinger technique. A JR 4.0 INFINITI CATHETER FR 4 was advanced over a wire. OMNIPAQUE, 350 MG, 150ML 150ML was us ed for 17:49:12 injections. Recorded Pressure: LV, FA=690, Condition=Condition 1 17:49:39 (Left Ventricle) LV 85/30/39 Recorded Pressure: LV, Ao, UN=916, Condition=Condition 1 17:50:00 (Left Ventricle) LV 139/19/36, (Aorta) Ao 134/84/108 17:50:16 QU=473 bpm, HHBL=101/98 mmhg, SpO2=98.0 %, Resp=18 B/min, Pain=0, Meaghan=10, Lentz=2 17:50:52 The RCA was injected and visualized at various angles. OMNIPAQUE, 350 MG, 150ML 150ML used . After removing the current catheter a JL 4.0 INFINITI CATHETER FR 4 was advanced over a WIRE, 3 MMJ .035 180CM 17:51:55 180CM. 17:52:06 The LCA was injected and visualized at various angles. OMNIPAQUE, 350 MG, 150ML 150ML used . 17:53:00 ACT (Normal Range 90-180) = 208 17:53:25 Catheter was removed A SHEATH, FR6.5 PRELUDE 11CM FR 6.5 was exchanged in the Fem Art (right). This was necessary in order to 17:54:31 accomodate a larger catheter. 17:54:44 Patient arrived on 2500 units HEPARIN given by Ramona Toledo, LENA via Peripheral IV. 17:55:12 YT=108 bpm, RPQP=786/90 mmhg, SpO2=97.0 %, Resp=16 B/min, Pain=0, Meaghan=10, Lentz=2 A XB 3.5 GUIDE CATHETER FR 6 was advanced over a wire. OMNIPAQUE, 350 MG, 150ML 150ML was used for 17:56:52 injections. 17:58:42 A WIRE, [address] PROWATER 180CM 180CM was inserted via Fem Art (right). 17:58:48 Interventional wire has crossed the lesion An STENT, 4.0 12 INTEGRITY 4.0 12 Bare Metal Stent was inserted through a XB 3.5 GUIDE CATHETER FR 6 over a 17:59:44 WIRE, ASAHI PROWATER 180CM 180CM. 18:00:16 RX=467 bpm, YLYQ=273/95 mmhg, Resp=15 B/min, Pain=0, Meaghan=10, Lentz=2 A STENT, 4.0 12 INTEGRITY 4.0 12 was deployed using a 30 CRISTIANE INDEFLATOR at 10 atmospheres for 1 0 seconds in 18:00:24 the LAD Prox. 18:02:36 Wire removed 18:03:59 Catheter was removed 18:04:08 Case End 18:05:11 In the Fem Art (right) the SHEATH, FR6.5 PRELUDE 11CM FR 6.[address] by Tabatha Almazan, BIOMETRICS INSTRUCTOR TECH2. 18:05:13 HJ=481 bpm, ZRPV=945/95 mmhg, SpO2=97.0 %, Resp=12 B/min, Pain=0, Meaghan=10, Lentz=2 18:05:19 Sterile dressing applied to site 18:05:31 No case complications noted. 18:05:36 Patient arrived on 40 mL AGGRASTAT BOLUS given by Ramona Toledo RN via Peripheral IV. 18:06:04 Bedside Report will be given. 18:06:07 Implantable Device card placed in patient's chart. 18:10:16 LS=589 bpm, VBLH=035/86 mmhg, SpO2=99.0 %, Resp=14 B/min, Pain=0, Meaghan=10, Lentz=2 End Study - Contrast Media Used In Study Contrast Total Opened (mL) Total Used (mL) Total Wasted (mL) Omnipaque 150 65 85 End Study - Maximum Contrast Load Max Contrast Load (mL) 333.3 End Study - Radiation Exposure Fluoro Time (minutes) 3.3 End Study - Patient Disposition Complications Transferred To Interventional Outcome No Telemetry Bed successful
--- NOTE | 2017-08-27 16:29 | PD.CARD.PN ---
Subjective Subjective Remarks alert in nad, denies chest pain or dyspnea, c/o mild left shoulder pain improved Objective Medications Current Medications Medications (Trade) Dose Ordered Sig/Rubens Route Start Time Stop Time Status Last Admin Nitroglycerin/ Dextrose 250 ml @ 3 mls/hr TITRATE PRN IV 08/25/17 16:45 (NS Flush) 2 ml UNSCH PRN IV FLUSH 08/25/17 20:15 (NS Flush) 2 ml BID IV FLUSH 08/25/17 21:00 08/27/17 10:46 (Aspirin Chew) 162 mg DAILY PO 08/26/17 09:00 08/27/17 10:45 (Plavix) 75 mg DAILY PO 08/26/17 09:00 08/27/17 11:00 (Lipitor) 80 mg HS PO 08/26/17 21:00 08/26/17 20:31 (Coreg) 3.125 mg Q12H PO 08/27/17 08:00 08/27/17 10:49 (Prinivil) 2.5 mg DAILY PO 08/27/17 09:00 08/27/17 10:43 (Pill Splitter) 1 ea UNSCH PRN OTHER 08/26/17 19:00 (Aldactone) 25 mg BID@09,18 PO 08/27/17 18:00 Vital Signs / I&O Vital Signs Date Time Temp Pulse Resp B/P (MAP) Pulse Ox O2 Delivery O2 Flow Rate FiO2 08/27/17 14:25 88 08/27/17 13:00 84 08/27/17 12:00 86 08/27/17 11:00 88 08/27/17 10:00 88 08/27/17 09:00 90 08/27/17 08:00 86 08/27/17 07:53 86 08/27/17 07:53 97.6 86 18 106/66 (79) 96 08/27/17 06:00 86 08/27/17 05:00 114 08/27/17 04:00 90 08/27/17 03:00 92 08/27/17 03:00 99.0 95 20 106/66 (79) 94 08/27/17 02:00 90 08/27/17 01:00 96 08/27/17 00:00 95 08/27/17 00:00 98.8 97 20 92/60 (71) 95 08/26/17 23:00 112 08/26/17 22:00 96 08/26/17 21:00 94 08/26/17 20:00 110 08/26/17 19:00 99.0 99 20 110/69 (83) 96 08/26/17 19:00 106 08/26/17 18:00 98.7 101 16 112/65 (81) 96 08/26/17 17:06 104 I/O 08/26/17 08/26/17 08/26/17 08/27/17 08/27/17 08/27/17 07:00 15:00 23:00 07:00 15:00 23:00 Intake Total 480 ml 360 ml Output Total 1250 ml 0 ml Balance -770 ml 360 ml Intake Oral 480 ml 360 ml Output Urine Total 1250 ml Stool Total 0 ml Emesis 0 ml # Voids 6 2 # Bowel Movements 0 Physical Exam GENERAL: SKIN: Warm and dry. HEAD: Normocephalic. EYES: No scleral icterus. No injection or drainage. NECK: Supple, trachea midline. No JVD or lymphadenopathy. CARDIOVASCULAR: Regular rate and rhythm without murmurs, gallops, or rubs. RESPIRATORY: Breath sounds equal bilaterally. No accessory muscle use. GASTROINTESTINAL: Abdomen soft, non-tender, nondistended. MUSCULOSKELETAL: No cyanosis, or edema. BACK: Nontender without obvious deformity. No CVA tenderness. Laboratory Laboratory Tests Test 08/27/17 04:49 Blood Urea Nitrogen 27 MG/DL Creatinine 1.42 MG/DL Random Glucose 92 MG/DL Calcium Level 8.8 MG/DL Magnesium Level 2.2 MG/DL Sodium Level 137 MEQ/L Potassium Level 3.8 MEQ/L Chloride Level 105 MEQ/L Carbon Dioxide Level 23.1 MEQ/L Anion Gap 9 MEQ/L Estimat Glomerular Filtration Rate 51 ML/MIN B-Type Natriuretic Peptide 261 PG/ML Assessment and Plan Problem List: (1) NSTEMI (non-ST elevated myocardial infarction) ICD Codes: I21.4 - Non-ST elevation (NSTEMI) myocardial infarction (2) CAD (coronary artery disease) ICD Codes: I25.10 - Atherosclerotic heart disease of [place] coronary artery without angina pectoris (3) Cardiomyopathy ICD Codes: I42.9 - Cardiomyopathy, unspecified (4) Tobacco abuse ICD Codes: Z72.0 - Tobacco use Assessment and Plan 1.) CAD - pod# 1 bms prox lad, continue aspirin, plavix, lipitor 80 mg hs, coreg 3.125 mg bid, lisinopril 2.5 mg qd, consider pci diag, om, lcx if left shoulder persists or worsens 2.) cardiomyopathy - dc lasix, start aldactone 25 mg bid, f/u bnp/bmp 3.) Patient strongly advised to stop smoking Gilberto Cornell MD Aug 27, 2017 16:29
[2017-08-27] MEDS: SPIRONOLACTONE 25 MG TAB PO SCH (18:40)
[2017-08-27] MEDS: ATORVASTATIN 80 MG TAB PO SCH (21:53)
[2017-08-28] VITALS (16 sets, daily range): BP systolic 104–120; BP diastolic 62–71; PULSE 78–100; RESP 16; TEMP 97.5–98.3; O2SAT 94–98
[2017-08-28 05:38] LABS: BICARBONATE 25.4 MEQ/L (21.0-32.0); CALCIUM 9.1 MG/DL (8.5-10.1); CREATININE 1.44 MG/DL (0.60-1.30); MAGNESIUM 2.3 MG/DL (1.5-2.5)
[2017-08-28] MEDS: CLOPIDOGREL 75 MG TAB PO SCH (08:31)
[2017-08-28] MEDS: SPIRONOLACTONE 25 MG TAB PO SCH (08:32)
[2017-08-28] MEDS: CARVEDILOL 3.125 MG TAB PO SCH (08:32)
[2017-08-28] MEDS: ASPIRIN 81 MG CHEW TAB PO SCH (08:32)
[2017-08-28] MEDS: SODIUM CHLORIDE 0.9% FLUSH 10 ML FLUSH IV FLUSH SCH (08:32)
[2017-08-28] MEDS: LISINOPRIL 5 MG TAB PO SCH (08:32)
--- NOTE | 2017-08-28 12:10 | HHI.PR ---
Subjective Remarks no complians ready to go home up and ambulating Objective Vitals Vital Signs Date Time Temp Pulse Resp B/P (MAP) Pulse Ox O2 Delivery O2 Flow Rate FiO2 08/28/17 12:00 86 08/28/17 11:32 97.6 88 16 120/71 (87) 98 08/28/17 11:00 87 08/28/17 10:00 96 08/28/17 09:00 87 08/28/17 08:00 82 08/28/17 07:32 97.5 94 16 115/67 (83) 98 08/28/17 07:00 92 08/28/17 06:14 81 08/28/17 05:15 86 08/28/17 04:00 100 08/28/17 03:00 78 08/28/17 03:00 98.3 88 108/62 (77) 97 08/28/17 02:00 94 08/28/17 01:00 90 08/28/17 00:19 98.2 90 104/63 (77) 94 08/28/17 00:00 80 08/27/17 23:00 84 08/27/17 22:00 102 08/27/17 21:00 98 08/27/17 20:00 84 08/27/17 19:00 88 08/27/17 19:00 98.2 82 114/71 (85) 96 08/27/17 18:10 84 08/27/17 17:15 90 08/27/17 15:00 97.9 81 16 113/65 (81) 97 08/27/17 15:00 81 08/27/17 14:25 88 08/27/17 13:00 84 I/O 08/27/17 08/27/17 08/27/17 08/28/17 08/28/17 08/28/17 07:00 15:00 23:00 07:00 15:00 23:00 Intake Total 360 ml 1060 ml 480 ml Output Total 0 ml 1200 ml 950 ml Balance 360 ml -140 ml -470 ml Intake Oral 360 ml 1060 ml 480 ml Output Urine Total 1200 ml 950 ml Emesis 0 ml # Voids 2 # Bowel Movements 0 0 1 Result Diagram: 08/26/17 1402 08/28/17 0446 Imaging Last Impressions Chest X-Ray 08/25/17 1640 Signed Impressions: Service Date/Time: Friday, August 25, 2017 16:42 - CONCLUSION: No acute disease. Jose Enrique Curry MD Objective Remarks awake and alert, no acute distress anicteric no JVD, supple lungs- no rales no wheezes regular rhythm abdomen soft, nontender right groin- cath site- no hematoma good peripheral pulses Procedures 08/25- Left heart catheterization, left ventriculography, coronary angiography, direct PCI with bare-metal stent of the proximal mid LAD. A/P Assessment and Plan 62-year-old male with known history of CAD presenting with Acute coronary syndrome status post left heart catheterization with PCI with bare metal stent of proximal LAD 08/25 Ischemic Cardiomyopathy ejection fraction of 30-35%- clinically not in failure Plavix plus aspirin change to po Lasix - decrease dose to 20 mg po bid Lisinopril + Coreg Cardiology ff Hyperlipidemia- LDL 145 continue on statins. LFTs good Hyperkalemia- resolved BREA- with IV diuretics decrease Lasix to 20 mg po bid Aldactone-25 mg po dialy- added to regimen Tobacco abuse. Patient counseled extensively. Increase activity OP ff up DC today OP ff up with PCP- Dr. Burris- I d/w patient and OP ff Up with cardiolgoy in 1-2 weeks Jey Fernandes MD Aug 28, 2017 12:10
[2017-08-28] MEDS ORDERED: ATOR80TA45 PO (12:22)
[2017-08-28] MEDS ORDERED: CARV3.125 PO (12:22)
[2017-08-28] MEDS ORDERED: SPIR25 PO (12:22)
[2017-08-28] MEDS ORDERED: LISI-519 PO (12:22)
[2017-08-28] MEDS ORDERED: ASPI81 PO (12:22)
[2017-08-28] MEDS ORDERED: PLAV75TA29 PO (12:22)
--- NOTE | 2017-08-28 12:25 | HHI.DS ---
Discharge Summary Admission Date Aug 25, 2017 at 19:04 Discharge Date: Aug 28, 2017 Admitting Diagnosis STEMI Procedures 08/25- Left heart catheterization, left ventriculography, coronary angiography, direct PCI with bare-metal stent of the proximal mid LAD. Brief History - From Admission Patient is a 62-year-old male with known history of CAD status post stent in 2006 about 10 days prior to admission complained of "indigestion, reflux sensation" to the epigastric area This lasted for about 3 hours. Denies any nausea vomiting. When questioned about chest pain he now states that in retrospect he probably have some chest discomfort. About 4 days prior to admission patient started complaining of shortness of breath. He took his ' s inhalers which he states did help. The next day he called his primary care physician and was seen in the office where an EKG done shows QS waves in anterior wall and patient was sent straight to the emergency room back via EVAC. Patient was promptly seen by film mounter and had a left heart catheterization was done. And underwent direct PCI with bare-metal stent of the proximal mid LAD. Ejection fraction was noted to be 30-35%. Patient was started on Plavix aspirin and Lasix. Patient now currently seen appears comfortable. Patient denies any fever cough denies any paroxysmal nocturnal dyspnea or orthopnea prior to this recent episode. Denies any leg swelling. Patient operates a company, active at work, plays golf every weekend. Patient admitted.for further evaluation and management CBC/BMP: 08/26/17 1402 08/28/17 0446 Significant Findings Laboratory Tests Test 08/25/17 16:40 08/26/17 07:20 08/26/17 14:02 08/27/17 04:49 Mean Platelet Volume 11.3 FL (7.0-11.0) Monocytes (%) (Auto) 8.6 % (0.0-8.0) 9.7 % (0.0-8.0) Platelet Morphology Comment CLUMPED (NORMAL) Activated Partial Thromboplast Time 22.7 SEC (24.3-30.1) Bedside Potassium 6.0 MMOL/L (3.6-5.0) Troponin I 1.05 NG/ML (0.02-0.05) B-Type Natriuretic Peptide 325 PG/ML (0-100) 348 PG/ML (0-100) 261 PG/ML (0-100) Direct Bilirubin 0.3 MG/DL (0.0-0.2) Carbon Dioxide Level 20.5 MEQ/L (21.0-32.0) Estimat Glomerular Filtration Rate 62 ML/MIN (>89) 51 ML/MIN (>89) LDL Cholesterol 145 MG/DL (0-99) HDL Cholesterol 24.2 MG/DL (40.0-60.0) Blood Urea Nitrogen 27 MG/DL (7-18) Creatinine 1.42 MG/DL (0.60-1.30) Test 08/28/17 04:46 Blood Urea Nitrogen 23 MG/DL (7-18) Creatinine 1.44 MG/DL (0.60-1.30) Estimat Glomerular Filtration Rate 50 ML/MIN (>89) B-Type Natriuretic Peptide 242 PG/ML (0-100) Imaging Last Impressions Chest X-Ray 08/25/17 1640 Signed Impressions: Service Date/Time: Friday, August 25, 2017 16:42 - CONCLUSION: No acute disease. Jose Enrique Curry MD PE at Discharge awake and alert, no acute distress anicteric no JVD, supple lungs- no rales no wheezes regular rhythm abdomen soft, nontender right groin- cath site- no hematoma good peripheral pulses Pt update on day of discharge up and ambulating no chest pain or shortness of brfereat ;ungs clear no edema Pt Condition on Discharge: Stable Discharge Disposition: Discharge Home Discharge Time: > 30 minutes Discharge Instructions DIET: Follow Instructions for: Heart Healthy Diet Speech Therapy-Diet Recommends: Regular Activities you can perform: Weight Bearing as Tuan Activities to Avoid: Strenuous Activity Follow up Referrals: Cardiology - 2 Weeks with Gilberto Cornell MD PCP Follow-up - 08/31/17 with Radha New Orders: COMP MET PROF (CMP) - 08/30/17 New Medications: Aspirin (Tgt Aspirin) 81 Mg Chw 162 MG PO DAILY for ACS for 30 Days, EA Atorvastatin (Atorvastatin) 80 Mg Tab 80 MG PO HS for ACS for 30 Days, TAB Carvedilol (Coreg) 3.125 Mg Tab 3.125 MG PO Q12H for CMP for 30 Days, #60 TAB Clopidogrel (Plavix) 75 Mg Tab 75 MG PO DAILY for ACS for 30 Days, #30 TAB as isntructed Lisinopril (Lisinopril) 5 Mg Tab 2.5 MG PO DAILY for CMP for 30 Days, #15 TAB Spironolactone (Aldactone) 25 Mg Tab 25 MG PO DAILY for CMP for 30 Days, #30 TAB Discontinued Medications: Lisinopril (Lisinopril) 20 Mg Tab 20 MG PO DAILY, #30 TAB 0 Refills Jey Fernandes MD Aug 28, 2017 12:25
--- NOTE | 2017-08-28 15:17 | PD.CARD.PN ---
Subjective Subjective Remarks alert in nad, denies chest pain or dyspnea, c/o mild left shoulder pain improved Objective Vital Signs / I&O Vital Signs Date Time Temp Pulse Resp B/P (MAP) Pulse Ox O2 Delivery O2 Flow Rate FiO2 08/28/17 12:00 86 08/28/17 11:32 97.6 88 16 120/71 (87) 98 08/28/17 11:00 87 08/28/17 10:00 96 08/28/17 09:00 87 08/28/17 08:00 82 08/28/17 07:32 97.5 94 16 115/67 (83) 98 08/28/17 07:00 92 08/28/17 06:14 81 08/28/17 05:15 86 08/28/17 04:00 100 08/28/17 03:00 78 08/28/17 03:00 98.3 88 108/62 (77) 97 08/28/17 02:00 94 08/28/17 01:00 90 08/28/17 00:19 98.2 90 104/63 (77) 94 08/28/17 00:00 80 08/27/17 23:00 84 08/27/17 22:00 102 08/27/17 21:00 98 08/27/17 20:00 84 08/27/17 19:00 88 08/27/17 19:00 98.2 82 114/71 (85) 96 08/27/17 18:10 84 08/27/17 17:15 90 I/O 08/27/17 08/27/17 08/27/17 08/28/17 08/28/17 08/28/17 07:00 15:00 23:00 07:00 15:00 23:00 Intake Total 360 ml 1060 ml 480 ml Output Total 0 ml 1200 ml 950 ml Balance 360 ml -140 ml -470 ml Intake Oral 360 ml 1060 ml 480 ml Output Urine Total 1200 ml 950 ml Emesis 0 ml # Voids 2 # Bowel Movements 0 0 1 Physical Exam GENERAL: SKIN: Warm and dry. HEAD: Normocephalic. EYES: No scleral icterus. No injection or drainage. NECK: Supple, trachea midline. No JVD or lymphadenopathy. CARDIOVASCULAR: Regular rate and rhythm without murmurs, gallops, or rubs. RESPIRATORY: Breath sounds equal bilaterally. No accessory muscle use. GASTROINTESTINAL: Abdomen soft, non-tender, nondistended. MUSCULOSKELETAL: No cyanosis, or edema. BACK: Nontender without obvious deformity. No CVA tenderness. Laboratory Laboratory Tests Test 08/28/17 04:46 Blood Urea Nitrogen 23 MG/DL Creatinine 1.44 MG/DL Random Glucose 93 MG/DL Calcium Level 9.1 MG/DL Magnesium Level 2.3 MG/DL Sodium Level 138 MEQ/L Potassium Level 5.0 MEQ/L Chloride Level 105 MEQ/L Carbon Dioxide Level 25.4 MEQ/L Anion Gap 8 MEQ/L Estimat Glomerular Filtration Rate 50 ML/MIN B-Type Natriuretic Peptide 242 PG/ML Assessment and Plan Problem List: (1) NSTEMI (non-ST elevated myocardial infarction) ICD Codes: I21.4 - Non-ST elevation (NSTEMI) myocardial infarction (2) CAD (coronary artery disease) ICD Codes: I25.10 - Atherosclerotic heart disease of [place] coronary artery without angina pectoris (3) Cardiomyopathy ICD Codes: I42.9 - Cardiomyopathy, unspecified (4) Tobacco abuse ICD Codes: Z72.0 - Tobacco use Assessment and Plan 1.) CAD - pod# 3 bms prox lad, continue aspirin, plavix, lipitor 80 mg hs, coreg 3.125 mg bid, lisinopril 2.5 mg qd, consider pci diag, om, lcx if left shoulder persists or worsens 2.) cardiomyopathy - dc lasix, decrease aldactone 25 mg qd 3.) Patient strongly advised to stop smoking 4.) Ok to dc from cv standpoint on aspirin, plavix, lipitor, aldactone 25 mg qd , lisinopril, coreg; i strongly advised patient and his to be compliant with aspirin and plavix or be a high risk for life theatening stent thrombosis; patient and his understand and he states he will be compliant; advised him to f/u with me in my office 09/01/17; nurse present during discussion Gilberto Cornell MD Aug 28, 2017 15:17
[2017-08-29] MEDS ORDERED: SPIRONOLACTONE 25 MG TAB PO SCH (09:00)
== END 2017-08-28 12:47 | disposition home or self-care (01) | DRG 249 ==
LOC: NEPE 16:16 → NEDA 19:04 → HCPC 19:20
PROVIDERS: ADMIT Internal Medicine; ATTEND Internal Medicine
PROC: 02703DZ Dilation of Coronary Artery, One Artery with Intraluminal Device, Percutaneous Approach (ICD-10-PCS; principal; 2017-08-25)
PROC: 4A023N7 Measurement of Cardiac Sampling and Pressure, Left Heart, Percutaneous Approach (ICD-10-PCS; 2017-08-25)
PROC: B2111ZZ Fluoroscopy of Multiple Coronary Arteries using Low Osmolar Contrast (ICD-10-PCS; 2017-08-25)
PROC: B2151ZZ Fluoroscopy of Left Heart using Low Osmolar Contrast (ICD-10-PCS; 2017-08-25)
DX: I21.3 ST elevation (STEMI) myocardial infarction of unspecified site (principal); N17.9 Acute kidney failure, unspecified; I25.118 Atherosclerotic heart disease of native coronary artery with other forms of angina pectoris; I50.30 Unspecified diastolic (congestive) heart failure; I11.0 Hypertensive heart disease with heart failure; I25.5 Ischemic cardiomyopathy; E87.5 Hyperkalemia; Z95.5 Presence of coronary angioplasty implant and graft; Z82.49 Family history of ischemic heart disease and other diseases of the circulatory system; F17.210 Nicotine dependence, cigarettes, uncomplicated; E78.5 Hyperlipidemia, unspecified; I25.2 Old myocardial infarction; F12.90 Cannabis use, unspecified, uncomplicated
CPT/HCPCS: 71045; 80048; 80061; 80076; 82310; 82550; 82552; 83735; 83880; 84484; 85002; 85025; 85610; 85730; 92941; 93005; 93306; 93458; 96374; C1769; C1876; C1893; J1644; J1940; J3010; J3246; J7030; Q9967